=== PATIENT | male | born 1995 | race Caucasian/White ===

== ENCOUNTER 2017-11-30 12:22 | Emergency (ER) | payer SELFPAY ==
[~2017-11-30] VITALS: Ht 175.3 cm; Wt 111.1 kg
[2017-11-30 12:30] VITALS: Ht 175.3 cm; Wt 111.1 kg
[2017-11-30 15:16] VITALS: BP 118/67
== END 2017-11-30 15:16 | disposition home or self-care (01) ==
LOC: ED 12:22
DX: M25.521 Pain in right elbow (principal); X50.0XXA Overexertion from strenuous movement or load, initial encounter; Y93.89 Activity, other specified; Y92.89 Other specified places as the place of occurrence of the external cause; Y99.8 Other external cause status